=== PATIENT | female | born 1930 | race Caucasian/White ===

== ENCOUNTER 2017-12-11 18:58 | Emergency (ER) | payer MEDICARE, OTHER ==
[2017-12-11] MEDS: ACETAMINOPHEN 325 MG TAB PO (20:09)
== END 2017-12-12 00:28 | disposition home or self-care (01) ==
LOC: E/R 18:58
DX: S30.0XXA Contusion of lower back and pelvis, initial encounter (principal); R40.2142 Coma scale, eyes open, spontaneous, at arrival to emergency department; R40.2252 Coma scale, best verbal response, oriented, at arrival to emergency department; R40.2362 Coma scale, best motor response, obeys commands, at arrival to emergency department; I10 Essential (primary) hypertension; E03.9 Hypothyroidism, unspecified; W06.XXXA Fall from bed, initial encounter; Y92.038 Other place in apartment as the place of occurrence of the external cause; Z86.73 Personal history of transient ischemic attack (TIA), and cerebral infarction without residual deficits
CPT/HCPCS: 72131; 72170; 72192; 72220; 99284-25